=== PATIENT | female | born 1970 | race Caucasian/White ===

== ENCOUNTER 2019-04-08 06:28 | Day surgery (SDC) | payer BC ==
[2019-04-08] MEDS ORDERED: Lactated Ringers 1,000 ML IV SCH (07:00)
[2019-04-08] MEDS ORDERED: fentaNYL 100 MCG/2 ML SDV ONE (07:26)
[2019-04-08] MEDS ORDERED: Propofol 200 MG/20 ML SDV ONE (07:26)
[2019-04-08] MEDS ORDERED: Midazolam 1 MG/ML 2 ML SDV ONE (07:26)
--- NOTE | 2019-04-08 12:33 | OR ---
DATE OF PROCEDURE: 04/08/2019 PREOPERATIVE DIAGNOSIS: Family history of cancer of unknown primary. POSTOPERATIVE DIAGNOSES: Unremarkable colonoscopy; family history of cancer, unknown primary. PROCEDURE: Colonoscopy to the cecum. SURGEON: Bhavesh Khalil MD. ANESTHESIA: IV anesthesia with monitored anesthesia care. INDICATION: This 48-year-old white female is referred for a colonoscopy. She says her last colonoscopic exam was done 8 years ago. The indication today is a strong family history of cancer, unknown primary. Apparently, her mother of unknown primary cancer. 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 I counseled the patient for a colonoscopy with possible biopsy and/or polypectomy including risks and alternatives, and she gave her informed consent to proceed. DESCRIPTION OF PROCEDURE: The patient was placed in the left lateral decubitus position. IV anesthesia was administered by the Anesthesia Service. Time-out was held. A rectal exam was performed which was unremarkable. The flexible video Olympus colonoscope was introduced through her anus, up her rectum, and out her colon all the way to the cecum. Once the cecum was reached, the scope was slowly withdrawn examining the mucosa throughout. No mucosal abnormalities were noted. The scope was retroflexed in the rectum with the distal rectum showing some minor hemorrhoidal tissue, otherwise unremarkable. The scope was straightened and removed. She tolerated the procedure well. Bhavesh Khalil MD /[id number]
== END 2019-04-08 08:48 | disposition home or self-care (01) ==
LOC: JP.SDS 06:28
PROVIDERS: ATTEND Surgery
DX: Z12.11 Encounter for screening for malignant neoplasm of colon (principal); F32.9 Major depressive disorder, single episode, unspecified; D69.6 Thrombocytopenia, unspecified; Z80.0 Family history of malignant neoplasm of digestive organs
CPT/HCPCS: 45378; J2250; J2704; J3010; J7120

== ENCOUNTER 2024-04-09 10:04 | Day surgery (SDC) | payer OTHER ==
[2024-04-09] MEDS: Sodium Chloride 0.9% 1,000 ML IV SCH (10:47)
[2024-04-09] MEDS ORDERED: Propofol 200 MG/20 ML SDV ONE (11:18)
[2024-04-09] MEDS ORDERED: Midazolam 1 MG/ML 2 ML SDV ONE (11:18)
[2024-04-09] MEDS ORDERED: fentaNYL 50 MCG/ML SDV ONE (11:18)
== END 2024-04-09 13:15 | disposition home or self-care (01) ==
LOC: JP.SDS 10:04
PROVIDERS: ATTEND Surgery
DX: Z12.11 Encounter for screening for malignant neoplasm of colon (principal)
CPT/HCPCS: G0121; J2250; J2704; J3010; J7030